=== PATIENT | male | born 1960 | race Caucasian/White ===

== ENCOUNTER → 2016-11-21 | Day surgery (SDC) | payer MEDICAID ==
[~2016-11-21] VITALS: Ht 182.9 cm; Wt 102.2 kg
[~2016-11-21] MED LIST: ASPI325T PO; ATOR20TA15 PO; BUPIVACAINE HCL PF 0.5% 30 ML VIAL NERV BLOCK ONE; BUPIVACAINE HCL PF 0.5% 30 ML VIAL ONE; DEXT 5%-NACL 0.45% 1000 ML INJ 1,000 ML IV SCH; FAMOTIDINE 20 MG/2 ML VIAL ONE; IBUP800T23 PO; LACTATED RINGER'S 1000 ML INJ 1,000 ML ONE; LISI10TA PO; METO25TA6 PO; MIDAZOLAM HCL 2 MG/2 ML VIAL ONE; MIDAZOLAM HCL 5 MG/ML VIAL (1 ML) ONE; MORPHINE SULFATE 4 MG/ML INJ ONE; PHENYLEPH/NS 1000 MCG/10 ML SYR IV ONE; PROPOFOL 200 MG/20 ML AMP IV ONE; SODIUM CHLORIDE 0.9% FLUSH 5 ML FLUSH IVF PRN; SODIUM CHLORIDE 0.9% FLUSH 5 ML FLUSH IVF SCH; TAMS0.4C4 PO; ceFAZolin 2 GM PREMIX 50 ML ONE; ePHEDrine/NS 25 MG/5 ML SYR IV ONE
[2016-11-21 09:35] VITALS: BP 128/79; PULSE 59; RESP 16; TEMP 97.7; O2SAT 92
[2016-11-21 09:40] VITALS: PULSE 59
[2016-11-21 09:58] LABS: HEMATOCRIT 40.8 % (39.0-51.0); MEAN CELL VOLUME 89.6 FL (80.0-100.0); MEAN CORPUSCULAR HEMOGLOBIN 29.7 PG (27.0-34.0); MEAN CORPUSCULAR HGB CONC 33.1 % (32.0-36.0); PLATELET COUNT 173 TH/MM3 (150-450); RED BLOOD COUNT 4.55 MIL/MM3 (4.50-5.90); RED CELL DISTRIBUTION WIDTH 12.8 % (11.6-17.2); REVIEW FLAG FINAL; WHITE BLOOD COUNT 7.3 TH/MM3 (4.0-11.0)
--- NOTE | 2016-11-21 10:22 | HP.UPD ---
H&P Update Date: Nov 21, 2016 Note The Pre-Admit History and Physical Examination regarding the above named patient was reviewed (including, but not limited to, vital signs, medications, allergies, co-morbid conditions), and upon re-examination it is noted that: Indicated with "X" x - the patient's condition has not significantly changed since the last examination. [] - the patient's condition has changed since the last examination. Changes: Deya Cabral MD Nov 21, 2016 10:22
[2016-11-21 10:32] VITALS: PULSE 67
[2016-11-21 12:31] VITALS: PULSE 83
--- NOTE | 2016-11-21 12:36 | HHI.PR ---
Immediate Post Op Note Procedure Date: Nov 21, 2016 Pre Op Diagnosis: (1) Osteoarthritis of hand, primary localized Post Op Diagnosis: (1) Osteoarthritis of hand, primary localized Surgeon: Deya Cabral Requirements Manager(s): None Procedure: Interposition arthroplasty of the right thumb CMC joint with tendon transfer. Anesthesia: General Drains: None Tourniquet time (min at mmHg) 75 minutes at 220 mm Hg Patient to: PACU Patient Condition: Good Date/Time of Procedure: SEE SURGICAL CARE RECORD Deya Cabral MD Nov 21, 2016 12:36
[2016-11-21 13:25] VITALS: BP 116/75; PULSE 80; RESP 16; TEMP 97.6; O2SAT 95
--- NOTE | 2016-11-22 13:08 | EKG ---
Date Performed: 11/21/2016 Time Performed: 09:56:42 PTAGE: 56 years EKG: Sinus rhythm . Normal ECG PREVIOUS TRACING : 11/16/2011 08.53 No significant change from previous tracing noted. DOCTOR: Balaji Anderson Interpretating Date/Time 11/22/2016 13:06:29
--- NOTE | 2016-11-22 18:52 | MP ---
cc: KAREN MULTANI M.D. 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 OPERATION: Interposition arthroplasty of the right thumb CMC joint with tendon transfer. ANESTHESIA: General. SURGEON: Dr. Multani. INDICATIONS: The patient is a 56 year-old male with severe degenerative joint disease of the fight CMC joint. FINDINGS There was complete loss of cartilage at the CMC joint. At the completion of the procedure, the carpal trapezium had been removed and replaced with a portion of the flexor carpi radialis. TOURNIQUET TIME: Tourniquet time was 75 minutes. PROCEDURE The patient was seen preoperatively where the site and side were identified and marked. The patient was then taken to the operating placed in supine position. His identity was checked against the arm band and the consent form, site and side confirmed, time-out called prior to beginning the procedure. The right upper extremity was prepped with Hibiclens and draped in usual sterile fashion. The hair was clipped and the areas to be operated prior to surgery. The areas to be incised were outlined with a marking pen and a transverse incision at the dorsal radial base of the thumb, CMC joint. In addition a transverse incision was designed at the most distal volar portion of flexor carpi radialis in the wrist and 10 cm proximal to the this. The arm was exsanguinated and tourniquet inflated to 220 mmHg. A 15 blade was used make the incision over the thumb at the CMC joint down through the skin, down to the subcutaneous tissue. Under loupe magnification using a spread technique superficial vessels and nerves identified and retracted exposing the capsule. The tendons were also retracted. Incision was made into the capsule and osteotomes were used to separate the ligamentous attachments from the carpal trapezium. It was then removed in piecemeal using rongeurs. The volar base of the thumb metacarpal was then removed. Some of the periosteum was stripped off the dorsal aspect of the thumb metacarpal and a 4-mm hole was drilled obliquely from the dorsal aspect of the metacarpal into the joint. The area was then copiously irrigated with saline. A new 15 blade was used to make the incision in the distal forearm over the flexor carpi radialis down through the skin, down through the subcutaneous tissue. Separate incision was made 10 cm proximal to this. The incision proximally was made through the skin and down to the subcutaneous tissue, and then a spread technique was used to separate the superficial nerves and vessels exposing the tendon. The ulnar 50% was divided and a tendon passer was used to pass the tendon distally. It was then passed into the wound using a right-angle clamp and the fibers were all the way to the insertion at the index metacarpal base. It was then passed through the thumb metacarpal hole which had been drilled using a Garza passer. The thumb was then pulled distally and abducted against the index metacarpal and an apposition was sewn into place. The remainder of the tendon was then wrapped around the part coming from the index metacarpal and that was then secured with a 3-0 Ethibond suture material creating the anchovy cushion. The wound was then copiously irrigated with saline and the wounds were closed with 4-0 Vicryl to the deep layers except for the distal flexor carpi radialis incision, and then all the wounds were closed with Dermabond. Once the glue had dried in layers, Steri-Strips were applied. The tourniquet was then released after 75 minutes of tourniquet time. Pressure was applied. After several minutes, there was no evidence of any oozing. Dressing was applied using fluffy gauze, cast padding, hand wrap and a thumb spica splint. The patient was then taken from the operating room to the Recovery Room in satisfactory condition having tolerated the procedure well. Postoperative instructions include keeping the arm elevated, keeping it clean and dry and returning in several days for follow up. The patient was given a prescription for ibuprofen 800 milligrams every 8 hours as needed for pain, 60 were prescribed. MD MEE Martin/RENAE /12:35 PM /6:25 PM
== END | disposition home or self-care (01) ==
LOC: PHSDC 08:45
PROVIDERS: ATTEND Specialist
DX: M19.041 Primary osteoarthritis, right hand (principal); M19.032 Primary osteoarthritis, left wrist; I10 Essential (primary) hypertension; Z79.82 Long term (current) use of aspirin
CPT/HCPCS: 01830; 25310; 25447; 36415; 85027; 93005; J0690; J2250; J2270; J2370; J3010; J7120

== ENCOUNTER → 2017-02-07 | Day surgery (SDC) | payer MEDICAID ==
[~2017-02-07] VITALS: Ht 182.9 cm; Wt 102.0 kg
[~2017-02-07] MED LIST changes: +BACITRACIN TOP OINT 15 GM TUBE ONE; -BUPIVACAINE HCL PF 0.5% 30 ML VIAL NERV BLOCK ONE; +CHLORHEXIDINE GLUCONATE 2 % 1 PACK (2 CLOTHS) TOPICAL PRN; +INSULIN HUMAN REGULAR 1,000 UNITS/10 ML VIAL SQ PRN; +LACTATED RINGER'S 1000 ML INJ 1,000 ML IV ONE; -LACTATED RINGER'S 1000 ML INJ 1,000 ML ONE; +LACTATED RINGER'S 1000 ML IV PRN; +LIDOCAINE 1%/EPINEPHrine 1:100,000 SOLN 30 ML VIAL ONE; +MEDR4PAK PO; +METOPROLOL TARTRATE 25 MG TAB PO PRN; -MIDAZOLAM HCL 2 MG/2 ML VIAL ONE; -MORPHINE SULFATE 4 MG/ML INJ ONE; +ONDANSETRON HCL 4 MG/2 ML VIAL IV PUSH ONE; +OXYMETAZOLINE HCL 0.05% 15 ML NASAL SPRAY ONE; -PHENYLEPH/NS 1000 MCG/10 ML SYR IV ONE; +POVIDONE IODINE 10% OINT 1 PACKET TOPICAL ONE; +POVIDONE IODINE 5% (ANTISEPSIS KIT) 4 APPLICATIONS EACH NARE PRN; +ROBA500T PO; +SODIUM CHLORID 0.9% 500 ML IV PRN; +TAMS5CAP PO; +ceFAZolin 2 GM PREMIX 50 ML IV SCH; -ceFAZolin 2 GM PREMIX 50 ML ONE; -ePHEDrine/NS 25 MG/5 ML SYR IV ONE
[2017-02-07 07:16] LABS: MEAN CELL VOLUME 87.7 FL (80.0-100.0); MEAN CORPUSCULAR HEMOGLOBIN 30.2 PG (27.0-34.0); MEAN CORPUSCULAR HGB CONC 34.4 % (32.0-36.0); PLATELET COUNT 218 TH/MM3 (150-450); RED BLOOD COUNT 4.45 MIL/MM3 (4.50-5.90); RED CELL DISTRIBUTION WIDTH 12.6 % (11.6-17.2); REVIEW FLAG FINAL; WHITE BLOOD COUNT 8.2 TH/MM3 (4.0-11.0)
[2017-02-07 07:18] VITALS: BP 146/93; PULSE 74; RESP 18; TEMP 97.9; O2SAT 95
[2017-02-07 07:53] VITALS: PULSE 68
--- NOTE | 2017-02-07 08:37 | HP.UPD ---
H&P Update Date: Feb 07, 2017 Note The Pre-Admit History and Physical Examination regarding the above named patient was reviewed (including, but not limited to, vital signs, medications, allergies, co-morbid conditions), and upon re-examination it is noted that: Indicated with "X" x - the patient's condition has not significantly changed since the last examination. [] - the patient's condition has changed since the last examination. Changes: Deya Cabral MD Feb 07, 2017 08:37
[2017-02-07 08:54] VITALS: PULSE 83
[2017-02-07 11:01] VITALS: PULSE 75
[2017-02-07 11:30] VITALS: PULSE 74; TEMP 97.7
--- NOTE | 2017-02-07 11:31 | HHI.PR ---
Immediate Post Op Note Procedure Date: Feb 07, 2017 Pre Op Diagnosis: (1) Primary osteoarthritis of left wrist Post Op Diagnosis: (1) Primary osteoarthritis of left wrist Surgeon: Deya Cabral Environmental Health And Safety Manager(s): None. Procedure: Interposition arthroplasty of the left thumb CMC joint with tendon transfer Anesthesia: General Drains: None Tourniquet time (min at mmHg) 78 minutes at 220 mmHg Patient to: PACU Patient Condition: Good Date/Time of Procedure: SEE SURGICAL CARE RECORD Deya Cabral MD Feb 07, 2017 11:31
[2017-02-07 12:20] VITALS: BP 120/71; PULSE 71; RESP 14; O2SAT 97
--- NOTE | 2017-02-07 22:34 | MP ---
cc: KAREN MULTANI M.D. DATE OF SURGERY: 02/07/2017 PREOPERATIVE DIAGNOSIS: Degenerative joint disease of the left thumb CMC joint. POSTOPERATIVE DIAGNOSIS: Degenerative joint disease of the left thumb CMC joint. OPERATION: Interposition arthroplasty of the left thumb CMC joint. Tendon transfer to the left thumb CMC joint. ANESTHESIA: General. SURGEON Karen Multani MD INDICATIONS A 56 year-old male with severe degenerative joint disease of the left thumb CMC joint. FINDINGS There was a significant amount of cartilage loss. At the completion of the procedure, the carpal trapezium had been removed and placed with tendon transfer using a portion of the flexor carpi radialis. TOURNIQUET TIME: 78 minutes at 220 mmHg. PROCEDURE The patient was seen preoperatively. The site and side were identified and marked. The patient was then taken to the operating room, placed in supine position. His identity was checked against the arm and the consent form, site and side confirmed, time-out called prior to beginning the procedure. The left upper extremity was prepped with Hibiclens and draped in the usual sterile fashion. The area be incised was outlined with a marking pen. The transverse incision, the dorsal radial aspect of the left thumb CMC joint. The area had been clipped prior to prepping and draping. Also an incision was designed in the most distal volar portion of the flexor carpi radialis in the wrist and 10 cm proximal to this. The arm was exsanguinated and the tourniquet inflated to 220 mmHg. A #15 blade was used make the incision over the CMC joint down through skin, down to the subcutaneous tissue. Under loupe magnification using sharp and blunt dissection the capsule was identified and opened exposing the trapezium which was then removed in piecemeal, after separate ligamentous attachments with a sharp osteotome. The flexor carpi radialis was visualized in the wound. The volar base of the metacarpal was removed and then a 4-mm hole was drilled obliquely from the dorsal aspect of the metacarpal into the joint where the trapezium had been removed with sequentially larger drill bits. The area was then copiously irrigated with saline. A 15 blade was then used make an incision over the most distal volar portion of the flexor carpi radialis in the wrist and 10 cm proximal to this. Proximally the ulnar 50% of the flexor tendon was divided and then stripped distally using a tendon passer. It was then passed distally into the wound and the fibers were all the way to the insertion at the base of the index metacarpal using a small right angle. A Garza passer was then used to pass the tendon through the hole that had been drilled in the metacarpal. The thumb was then pulled distally and adducted against the index metacarpal and then sewn upon itself using 3-0 Ethilon suture material. The remainder of the tendon was wrapped upon the portion coming from the base of the index metacarpal and then secured with 3-0 Tycron. The capsule was then closed with a 3-0 Tycron and the wounds were closed with 4-0 Vicryl and Dermabond. Once the glue had dried in several layers Steri-Strips were applied. The tourniquet was released after 78 minutes of tourniquet time. Pressure was applied. After several minutes there was no evidence of any oozing and a dressing was applied using fluffy gauze, hand wrap, and a thumb spica splint. The patient was then taken from the operating room to the recovery room in satisfactory condition having tolerated the procedure well. Postoperative instructions include keeping arm elevated, keeping it clean and dry and returning next week for follow up. The patient has a prescription for 800 mg of ibuprofen at home. In addition he was given a supraclavicular block prior to surgery for postoperative pain control. MD MEE Martin/RENAE /11:39 AM /10:28 PM
== END | disposition home or self-care (01) ==
LOC: PHSDC 06:30
PROVIDERS: ATTEND Specialist
DX: M18.12 Unilateral primary osteoarthritis of first carpometacarpal joint, left hand (principal); M19.032 Primary osteoarthritis, left wrist
CPT/HCPCS: 01810; 01830; 25310; 25447; 36415; 85027; J0690; J2250; J2405; J7120; L3808

== ENCOUNTER 2017-02-15 03:28 | Emergency (ER) | payer MEDICAID ==
[~2017-02-15 03:28] MED LIST changes: -ATOR20TA15 PO; -BACITRACIN TOP OINT 15 GM TUBE ONE; -BUPIVACAINE HCL PF 0.5% 30 ML VIAL ONE; -CHLORHEXIDINE GLUCONATE 2 % 1 PACK (2 CLOTHS) TOPICAL PRN; -DEXT 5%-NACL 0.45% 1000 ML INJ 1,000 ML IV SCH; -FAMOTIDINE 20 MG/2 ML VIAL ONE; -INSULIN HUMAN REGULAR 1,000 UNITS/10 ML VIAL SQ PRN; -LACTATED RINGER'S 1000 ML INJ 1,000 ML IV ONE; -LACTATED RINGER'S 1000 ML IV PRN; -LIDOCAINE 1%/EPINEPHrine 1:100,000 SOLN 30 ML VIAL ONE; -MEDR4PAK PO; -METOPROLOL TARTRATE 25 MG TAB PO PRN; -MIDAZOLAM HCL 5 MG/ML VIAL (1 ML) ONE; -ONDANSETRON HCL 4 MG/2 ML VIAL IV PUSH ONE; -OXYMETAZOLINE HCL 0.05% 15 ML NASAL SPRAY ONE; -POVIDONE IODINE 10% OINT 1 PACKET TOPICAL ONE; -POVIDONE IODINE 5% (ANTISEPSIS KIT) 4 APPLICATIONS EACH NARE PRN; -PROPOFOL 200 MG/20 ML AMP IV ONE; -ROBA500T PO; -SODIUM CHLORID 0.9% 500 ML IV PRN; -SODIUM CHLORIDE 0.9% FLUSH 5 ML FLUSH IVF PRN; -SODIUM CHLORIDE 0.9% FLUSH 5 ML FLUSH IVF SCH; -TAMS5CAP PO; -ceFAZolin 2 GM PREMIX 50 ML IV SCH
[2017-02-15 03:31] VITALS: BP 139/93; PULSE 72; RESP 18; TEMP 97.5; O2SAT 97
[2017-02-15] MEDS ORDERED: TAMS5CAP PO (03:55)
--- NOTE | 2017-02-15 04:20 | PD ---
HPI Chief Complaint: Injury Time Seen by Provider: 04:16 Travel History International Travel<30 days: No Contact w/Intl Traveler<30days: No Traveled to known affect area: No History of Present Illness HPI Patient comes in for evaluation of upper thoracic back pain radiates into his left upper extremity ongoing for 5 or 6 days. This pain is constant. Denies anything making it worse. Patient has some improvement with heat and ice. Patient states he had surgery on his left hand by Dr. Cabral about 8 days ago and has appointment with him later this morning for follow-up. Patient states he's been taking ibuprofen as prescribed by Dr. Cabral with no improvement of symptoms of his radiculopathy. Patient states she had similar issues with radiculopathy in his right upper extremity when he had to have surgery on his right hand while wearing a sling that caused him some decreased range of motion of his right upper extremity and he is concerned that this may happen to his left upper extremity. PFSH Past Medical History Hx Anticoagulant Therapy: Yes (ASPIRIN) Arthritis: Yes Anxiety: Yes Heart Rhythm Problems: Yes Cancer: No Cardiovascular Problems: Yes ([place]) High Cholesterol: Yes Chest Pain: Yes Congestive Heart Failure: Yes Diabetes: No Diminished Hearing: No Endocrine: No Gastrointestinal Disorders: No Genitourinary: No Headaches: Yes Hepatitis: Yes (1969'S) Hiatal Hernia: No Hypertension: Yes Immune Disorder: No Implanted Vascular Access Dvce: No Musculoskeletal: Yes (SANDRA PAVON'S DISEASE) Neurologic: Yes (NERVE PAIN BACK) Psychiatric: Yes (CLAUSTRAPHOBIA) Reproductive: Yes (PROSTATE) Respiratory: No Immunizations Current: Yes Thyroid Disease: No Past Surgical History AICD: No Body Medical Devices: PLATES IN NECK Joint Replacement: No Neurologic Surgery: Yes (LUMBAR LAMINECTOMY) Pacemaker: No Other Surgery: Yes (back and neck sx.) Social History Alcohol Use: No Tobacco Use: No Substance Use: No Allergies-Medications (Allergen,Severity, Reaction): Uncoded Allergies: ARTIFICIAL EGGS (Allergy, Severe, Itching, 11/21/16) Reported Meds & Prescriptions Reported Meds & Active Scripts Active Robaxin (Methocarbamol) 500 Mg Tab 500 Mg PO Q8HR PRN Do not drive or operate heavy machinery while on medication as it can make you fall asleep. Lisinopril-Hctz 10-12.5 Mg Tab 1 Tab PO DAILY Metoprolol Succinate ER 24 HR (Metoprolol Succinate) 25 Mg Tab 25 Mg PO DAILY Tamsulosin (Tamsulosin HCl) 0.4 Mg Cap 0.4 Mg PO HS Ibuprofen 800 Mg Tab 800 Mg PO Q8H PRN Reported Flomax (Tamsulosin HCl) 0.4 Mg Cap 0.4 Mg PO HS Aspirin 325 Mg Tab 325 Mg PO DAILY Review of Systems Except as stated in HPI: all other systems reviewed are Neg Physical Exam Narrative GENERAL: Well-developed, overly nourished, in no acute distress, and non-ill appearing. SKIN: Focused skin assessment warm and dry. HEAD: Atraumatic. Normocephalic. EYES: Pupils equal and round. EOMI. No scleral icterus. No injection or drainage. ENT: No nasal bleeding or discharge. Mucous membranes pink and moist. NECK: Trachea midline. Supple. No nuclear rigidity. RESPIRATORY: No accessory muscle use. No respiratory distress. MUSCULOSKELETAL: No obvious deformities. No clubbing. No cyanosis. No edema. Decreased range of motion left hand secondary to splint in place. Patient is wearing a sling for his left upper extremity. Patient reports point tenderness left upper thoracic cavity paravertebral spinal muscles the patient reports is worse pain starts and radiates into his left upper extremity. Neurovascularly intact distally. NEUROLOGICAL: Awake and alert. No obvious cranial nerve deficits. Motor grossly within normal limits. Normal speech. PSYCHIATRIC: Appropriate mood and affect; insight and judgment normal. Data Data Last Documented VS Vital Signs Date Time Temp Pulse Resp B/P Pulse Ox O2 Delivery O2 Flow Rate FiO2 02/15/17 03:31 97.5 72 18 139/93 97 MDM Medical Decision Making Medical Screen Exam Complete: Yes Emergency Medical Condition: Yes Differential Diagnosis Fracture, strain, radiculopathy, other Narrative Course The patient presented complaining of left upper thoracic back pain with radiation of pain down the arm. There was no history of recent fall or trauma. There was no evidence to support atypical cardiac/angina as an etiology. There is also no evidence to suggest vascular pathology such as TAA or carotid dissection. No fevers or other evidence to suspect infectious processes, abscess , osteomyelitis etc. The patients neurological exam is normal with normal motor (as can be assessed with the splint in place) and sensory. There is no motor deficits reported or found, and no bowel or bladder incontinence or retention. I suspect the pain is mechanical in nature secondary to sling use. Clinical suspicion, plan of care and management was discussed with the patient. The patient was instructed to follow up with their health care provider. The patient was also instructed to return if the pain worsened, changed, or developed weakness or bowel or bladder trouble. The patient agreed with plan. Patient in no obvious distress upon re-evaluation. Patient was asked if they wanted to speak to my attending, which the patient did not wish to do at this time. Any questions/concerns in reference to patient diagnosis/condition discussed and clarified prior to patient's discharge. Reinforced sheer importance of close follow up with patient's primary physician or primary care clinic. Instructed patient to return to ED immediately, if symptoms return/ worsen. Pt showed understanding of above instructions. Further instructions and recommendations were detailed in discharge paperwork. Pt ambulated without difficulty out of ED at discharge. Diagnosis Primary Impression: Radiculopathy affecting upper extremity Patient Instructions: General Instructions Additional Instructions: Follow-up with your primary care physician this week for reevaluation. Follow up with Dr. Cabral today as scheduled.. Take all medication as prescribed. Return to the emergency department if symptoms get worse. Med/Other Pt SpecificInfo: Prescription(s) given Scripts Methocarbamol (Robaxin)500 Mg [id number] Mg PO Q8HR PRN (MUSCLE PAIN) #12 TAB Ref [address] operate heavy machinery while on medication as it can make you fall asleep. Prov:Nohemi Childs MD 02/15/17 Disposition: 01 DISCHARGE HOME Condition: Stable Grady Dillard Feb 15, 2017 04:20
[2017-02-15] MEDS ORDERED: ROBA500T PO (04:21)
[2017-02-15] MEDS ORDERED: MEDR4PAK PO (10:53)
[2017-02-21] MEDS ORDERED: TRAM50TA PO (13:23)
== END 2017-02-15 04:49 | disposition home or self-care (01) ==
LOC: NEPD 03:28
DX: M54.14 Radiculopathy, thoracic region (principal); F41.9 Anxiety disorder, unspecified; E78.00 Pure hypercholesterolemia, unspecified; I50.9 Heart failure, unspecified; I10 Essential (primary) hypertension; K75.9 Inflammatory liver disease, unspecified; M92.50 Unspecified juvenile osteochondrosis of tibia and fibula; M13.88 Other specified arthritis, other site
CPT/HCPCS: 99283

== ENCOUNTER 2017-02-17 10:00 | Emergency (ER) | payer MEDICAID ==
[~2017-02-17] VITALS: Ht 193 cm; Wt 100.0 kg
[~2017-02-17 10:00] MED LIST changes: +MEDR4PAK PO; +ROBA500T PO; +TAMS5CAP PO
[2017-02-17 10:06] VITALS: BP 137/82; PULSE 73; RESP 18; TEMP 98.2; O2SAT 96
[2017-02-17 10:57] VITALS: BP 138/92; PULSE 71; RESP 18; O2SAT 95
[2017-02-17] MEDS ORDERED: MORPHINE SULFATE 4 MG/ML INJ IV PUSH ONE (11:00)
[2017-02-17] MEDS ORDERED: SODIUM CHLORIDE 0.9% FLUSH 10 ML FLUSH IVF PRN (11:00)
[2017-02-17] MEDS ORDERED: oxyCODONE/ACETAMINOPHEN 5 MG/325 MG TAB PO ONE (11:00)
[2017-02-17 11:04] LABS: AUTOMATED NEUTROPHIL # 7.4 TH/MM3 (1.8-7.7); BASOPHIL # 0.1 TH/MM3 (0-0.2); BASOPHIL % 1.2 % (0.0-2.0); EOSINOPHIL # 0.1 TH/MM3 (0-0.4); EOSINOPHIL % 0.6 % (0.0-4.0); HEMO FLAGS DIFF FINAL; LYMPH % 25.5 % (9.0-44.0); LYMPHOCYTE # 2.7 TH/MM3 (1.0-4.8); MEAN CELL VOLUME 87.5 FL (80.0-100.0); MEAN CORPUSCULAR HEMOGLOBIN 29.7 PG (27.0-34.0); MONO % 4.6 % (0.0-8.0); NEUT % 68.1 % (16.0-70.0); PLATELET COUNT 232 TH/MM3 (150-450); RED BLOOD COUNT 4.35 MIL/MM3 (4.50-5.90); RED CELL DISTRIBUTION WIDTH 12.2 % (11.6-17.2); WHITE BLOOD COUNT 10.8 TH/MM3 (4.0-11.0)
[2017-02-17 11:13] LABS: CHLORIDE 103 MEQ/L (98-107); POTASSIUM 3.4 MEQ/L (3.5-5.1); SODIUM (NA) 138 MEQ/L (136-145)
[2017-02-17 11:16] LABS: ANION GAP 7 MEQ/L (5-15); BICARBONATE 27.6 MEQ/L (21.0-32.0); BLOOD UREA NITROGEN 16 MG/DL (7-18)
[2017-02-17 11:19] LABS: GLOMERULAR FILTRATION RATE 69 ML/MIN (>89)
[2017-02-17] MEDS ORDERED: PERC5TAB12 PO (11:27)
[2017-02-17] MEDS ORDERED: GABA300C5 PO (11:27)
--- NOTE | 2017-02-17 11:27 | PD ---
HPI Chief Complaint: Musculoskeletal Complaint Time Seen by Provider: 10:29 Travel History International Travel<30 days: No Contact w/Intl Traveler<30days: No Traveled to known affect area: No History of Present Illness HPI 56-year-old male with history of cervical and lumbar spine surgery here with complaint of left shoulder pain. Patient incidentally had a left thumb surgery by Dr. Cabral for osteoarthritis approximately one week ago. 2 days after surgery he began to have a burning, stinging, electric type pain from his left shoulder, left scapular region radiating down into the left arm. He was seen by Dr. Cabral who prescribed him NSAIDs, and give him a Medrol Dosepak. He is currently on day 3. Patient has not had any chest pain, but has had some shortness of breath which has been going on for several weeks duration. No peripheral edema. Patient does have a history of AZ, managed medically. His pain is made worse with any range of motion. He does have a sling at home and has used this but states that it hasn't helped much. PFSH Past Medical History Hx Anticoagulant Therapy: Yes (ASPIRIN) Arthritis: Yes Anxiety: Yes Heart Rhythm Problems: Yes Cancer: No High Cholesterol: Yes Chest Pain: Yes Congestive Heart Failure: Yes Diabetes: No Diminished Hearing: No Endocrine: No Gastrointestinal Disorders: No Genitourinary: No Headaches: Yes Hepatitis: Yes (1970'S) Hiatal Hernia: No Hypertension: Yes Immune Disorder: No Implanted Vascular Access Dvce: No Musculoskeletal: Yes (SANDRA PAVON'S DISEASE) Neurologic: Yes (NERVE PAIN BACK) Psychiatric: Yes (CLAUSTRAPHOBIA) Reproductive: Yes (PROSTATE) Respiratory: No Immunizations Current: Yes Thyroid Disease: No Past Surgical History AICD: No Body Medical Devices: PLATES IN NECK Joint Replacement: No Neurologic Surgery: Yes (LUMBAR LAMINECTOMY) Pacemaker: No Other Surgery: Yes (back and neck sx.) Social History Alcohol Use: No Tobacco Use: No Substance Use: No Allergies-Medications (Allergen,Severity, Reaction): Uncoded Allergies: ARTIFICIAL EGGS (Allergy, Severe, Itching, 11/21/16) Reported Meds & Prescriptions Reported Meds & Active Scripts Active Gabapentin 300 Mg Cap 300 Mg PO TID Percocet (Oxycodone-Acetaminophen) 5-325 mg Tab 1-2 Tab PO Q4H PRN Medrol Dosepak (Methylprednisolone) 4 Mg Dspk 4 Mg PO DIRECTED Per Pharmacist direction Robaxin (Methocarbamol) 500 Mg Tab 500 Mg PO Q8HR PRN Do not drive or operate heavy machinery while on medication as it can make you fall asleep. Lisinopril-Hctz 10-12.5 Mg Tab 1 Tab PO DAILY Metoprolol Succinate ER 24 HR (Metoprolol Succinate) 25 Mg Tab 25 Mg PO DAILY Ibuprofen 800 Mg Tab 800 Mg PO Q8H PRN Reported Flomax (Tamsulosin HCl) 0.4 Mg Cap 0.4 Mg PO HS Aspirin 325 Mg Tab 325 Mg PO DAILY Review of Systems Except as stated in HPI: all other systems reviewed are Neg Physical Exam Narrative GENERAL: Well-appearing male in no acute distress SKIN: Focused skin assessment warm/dry. HEAD: Normocephalic. EYES: No scleral icterus. No injection or drainage. ENT: Mucous membranes pink and moist. NECK: Supple without midline tenderness to palpation. Patient does have tenderness along the left trapezius without palpable spasm CARDIOVASCULAR: Regular rate and rhythm. No murmur appreciated. RESPIRATORY: No accessory muscle use. Clear to auscultation. Breath sounds equal bilaterally. GASTROINTESTINAL: Abdomen soft, non-tender, nondistended. Obese MUSCULOSKELETAL: Patient holding left shoulder splinted to the torso. He has a splint over the left wrist and thumb, thumb spica splint. He has focal tenderness to palpation at the head of the biceps, acromioclavicular joint, medial scapular/rhomboids, and pain with any range of motion of the shoulder particularly abduction greater than 90 and external rotation greater than 50. Distal sensation, capillary refill intact. Strength of the shoulder with flexion, abduction and internal/external rotation is limited left versus right, 4+. NEUROLOGICAL: Awake and alert. Normal speech. PSYCHIATRIC: Appropriate mood and affect; insight and judgment normal. Data Data Last Documented VS Vital Signs Date Time Temp Pulse Resp B/P Pulse Ox O2 Delivery O2 Flow Rate FiO2 02/17/17 10:57 71 18 138/92 95 Room Air 02/17/17 10:06 98.2 Orders Electrocardiogram (02/17/17 ) Basic Metabolic Panel (Bmp) (02/17/17 10:47) Complete Blood Count With Diff (02/17/17 10:47) Troponin I (02/17/17 10:47) Ecg Monitoring (02/17/17 10:47) Iv Access Insert/Monitor (02/17/17 10:47) Oximetry (02/17/17 10:47) Sodium Chloride 0.9% Flush (Ns Flush) (02/17/17 11:00) Morphine Inj (Morphine Inj) (02/17/17 11:00) Oxycodone-Acetamin 5-325 Mg (Percocet (02/17/17 11:00) Labs Laboratory Tests Test 02/17/17 11:00 White Blood Count 10.8 TH/MM3 Red Blood Count 4.35 MIL/MM3 Hemoglobin 12.9 GM/DL Hematocrit 38.0 % Mean Corpuscular Volume 87.5 FL Mean Corpuscular Hemoglobin 29.7 PG Mean Corpuscular Hemoglobin 34.0 % Concent Red Cell Distribution Width 12.2 % Platelet Count 232 TH/MM3 Mean Platelet Volume 7.9 FL Neutrophils (%) (Auto) 68.1 % Lymphocytes (%) (Auto) 25.5 % Monocytes (%) (Auto) 4.6 % Eosinophils (%) (Auto) 0.6 % Basophils (%) (Auto) 1.2 % Neutrophils # (Auto) 7.4 TH/MM3 Lymphocytes # (Auto) 2.7 TH/MM3 Monocytes # (Auto) 0.5 TH/MM3 Eosinophils # (Auto) 0.1 TH/MM3 Basophils # (Auto) 0.1 TH/MM3 CBC Comment DIFF FINAL Differential Comment Sodium Level 138 MEQ/L Potassium Level 3.4 MEQ/L Chloride Level 103 MEQ/L Carbon Dioxide Level 27.6 MEQ/L Anion Gap 7 MEQ/L Blood Urea Nitrogen 16 MG/DL Creatinine 1.10 MG/DL Estimat Glomerular Filtration 69 ML/MIN Rate Random Glucose 92 MG/DL Calcium Level 9.1 MG/DL Troponin I LESS THAN 0.02 NG/ML MDM Medical Decision Making Medical Screen Exam Complete: Yes Emergency Medical Condition: Yes Medical Record Reviewed: Yes Differential Diagnosis 56-year-old male with history of AZ here with left-sided shoulder pain, scapular pain that radiates down the left arm. Patient describes this as a radicular type pain, burning, electric in nature. I strong suspicion is for radiculopathy versus rotator cuff strain. Given his age and history of AZ there is concern for ACS on the differential although less likely given the approximately one week of pain without any worsening symptoms. Narrative Course Patient placed on monitor, IV established and blood obtained. Twelve-lead EKG shows sinus rhythm without notable ST or T-wave abnormalities and normal intervals. Patient was given morphine, Percocet. CBC, BMP, troponin were obtained and unremarkable. Patient was encouraged to use his Medrol Dosepak, he is currently on day 3. He was also given prescription for Percocet, gabapentin for home and encouraged to follow-up with sports medicine as an outpatient. Diagnosis Primary Impression: Radiculopathy affecting upper extremity Referrals: Adolfo Sabillon MD call for appointment Orthopedist call for appointment Additional Instructions: Percocet as needed for pain. Gabapentin as prescribed for pain. Follow-up with sports medicine physician as discussed. Med/Other Pt SpecificInfo: Prescription(s) given Scripts Gabapentin 300 Mg [id number] Mg PO TID #90 CAP Ref 0 Prov:Amber Samuel MD 02/17/17 Oxycodone-Acetaminophen (Percocet)5-325 mg Tab1-2 Tab PO Q4H PRN (PAIN) #20 TAB Ref 0 Prov:Amber Samuel MD 02/17/17 Disposition: 01 DISCHARGE HOME Condition: Stable Amber Samuel MD Feb 17, 2017 11:27
[2017-02-17 11:40] VITALS: BP 128/82; PULSE 65; RESP 14; O2SAT 95
--- NOTE | 2017-02-17 14:46 | EKG ---
Date Performed: 02/17/2017 Time Performed: 10:51:40 PTAGE: 56 years EKG: Sinus rhythm NORMAL ECG PREVIOUS TRACING : 11/21/2016 09.56 Compared to prior tracing no significant change DOCTOR: Adrian Lion Interpretating Date/Time 02/17/2017 14:45:13
[2017-02-21] MEDS ORDERED: TRAM50TA PO (13:23)
== END 2017-02-17 11:50 | disposition home or self-care (01) ==
LOC: PHEFT 10:00
DX: M54.10 Radiculopathy, site unspecified (principal); R06.02 Shortness of breath
CPT/HCPCS: 80048; 84484; 85025; 93005; 96374; 99284; J2270

== ENCOUNTER 2017-02-26 15:21 | Emergency (ER) | payer MEDICAID ==
[~2017-02-26] VITALS: Ht 182.9 cm; Wt 94.4 kg
[~2017-02-26 15:21] MED LIST changes: +GABA300C5 PO; -MEDR4PAK PO; +PERC5TAB12 PO; -TAMS0.4C4 PO; +TRAM50TA PO
[2017-02-26 15:25] VITALS: BP 132/80; PULSE 73; RESP 18; O2SAT 98
--- NOTE | 2017-02-26 15:42 | PD ---
HPI Chief Complaint: Pain: Acute or Chronic Time Seen by Provider: 15:34 Travel History International Travel<30 days: No Contact w/Intl Traveler<30days: No Traveled to known affect area: No History of Present Illness HPI PCP IS DR JEFFERS?, PATIENT C/O CHRONIC BACK PAIN/ARM PAIN (S/P SURGERY) WHICH HAS BEEN GOING ON AND WORKED UP BY PCP OVER PAST 3-4 WEEKS....HOWEVER REASON PATIENT CAME INTO ER IS LIGHTHEADEDNESS AND LIKE HE'S GOING TO FAINT, NO ALBERTO/CP/ ABDPAIN/N/V/D. RESTING SUPINE APPEARS TO BE A RELIEVING FACTOR, WHILE EXERTION SEEMS TO CAUSE WORSENING OF HIS DIZZINESS. PFSH Past Medical History Hx Anticoagulant Therapy: Yes (ASPIRIN) Arthritis: Yes Anxiety: Yes Heart Rhythm Problems: Yes Cancer: No High Cholesterol: Yes Chest Pain: Yes Congestive Heart Failure: Yes Diabetes: No Diminished Hearing: No Endocrine: No Gastrointestinal Disorders: No Genitourinary: No Headaches: Yes Hepatitis: Yes (1969'S) Hiatal Hernia: No Hypertension: Yes Immune Disorder: No Implanted Vascular Access Dvce: No Musculoskeletal: Yes (SANDRA PAVON'S DISEASE) Neurologic: Yes (NERVE PAIN BACK) Psychiatric: Yes (CLAUSTRAPHOBIA) Reproductive: Yes (PROSTATE) Respiratory: No Immunizations Current: Yes Thyroid Disease: No ?: Not Past Surgical History AICD: No Body Medical Devices: PLATES IN NECK Joint Replacement: No Neurologic Surgery: Yes (LUMBAR LAMINECTOMY) Pacemaker: No Other Surgery: Yes (back and neck sx.) Social History Alcohol Use: No Tobacco Use: No Substance Use: No Allergies-Medications (Allergen,Severity, Reaction): Uncoded Allergies: ARTIFICIAL EGGS (Allergy, Severe, Itching, 11/21/16) Reported Meds & Prescriptions Reported Meds & Active Scripts Active Baclofen 20 Mg Tab 20 Mg PO TID Tramadol (Tramadol HCl) 50 Mg Tab 50 Mg PO Q8H PRN Gabapentin 300 Mg Cap 300 Mg PO TID Lisinopril-Hctz 10-12.5 Mg Tab 1 Tab PO DAILY Metoprolol Succinate ER 24 HR (Metoprolol Succinate) 25 Mg Tab 25 Mg PO DAILY Ibuprofen 800 Mg Tab 800 Mg PO Q8H PRN Reported Flomax (Tamsulosin HCl) 0.4 Mg Cap 0.4 Mg PO HS Review of Systems Except as stated in HPI: all other systems reviewed are Neg HENT: Positive: Lightheadedness Physical Exam Narrative GENERAL: SKIN: Warm and dry. HEAD: Atraumatic. Normocephalic. EYES: Pupils equal and round. No scleral icterus. No injection or drainage. ENT: No nasal bleeding or discharge. Mucous membranes pink and moist. NECK: Trachea midline. No JVD. CARDIOVASCULAR: Regular rate and rhythm. RESPIRATORY: No accessory muscle use. Clear to auscultation. Breath sounds equal bilaterally. GASTROINTESTINAL: Abdomen soft, non-tender, nondistended. MUSCULOSKELETAL: Extremities without clubbing, cyanosis, or edema. No obvious deformities. NEUROLOGICAL: Awake and alert. No obvious cranial nerve deficits. Motor grossly within normal limits. Five out of 5 muscle strength in the arms and legs. Normal speech. PSYCHIATRIC: Appropriate mood and affect; insight and judgment normal. Data Data Last Documented VS Orders Electrocardiogram (02/26/17 15:34) Complete Blood Count With Diff (02/26/17 15:34) Comprehensive Metabolic Panel (02/26/17 15:34) Ckmb (Isoenzyme) Profile (02/26/17 15:34) Troponin I (02/26/17 15:34) B-Type Natriuretic Peptide (02/26/17 15:34) Prothrombin Time / Inr (Pt) (02/26/17 15:34) Act Partial Throm Time (Ptt) (02/26/17 15:34) Lipase (02/26/17 15:34) D-Dimer (02/26/17 15:34) Thyroid Stimulating Hormone (02/26/17 15:34) Chest, Single Ap (02/26/17 15:34) Ct Brain W/O Iv Contrast(Rout) (02/26/17 15:34) Iv Access Insert/Monitor (02/26/17 15:34) Ecg Monitoring (02/26/17 15:34) Oximetry (02/26/17 15:34) Orthostatic Vital Signs (02/26/17 15:34) Meclizine (Antivert) (02/26/17 16:15) CKMB (02/26/17 15:35) CKMB% (02/26/17 15:35) Lorazepam Inj (Ativan Inj) (02/26/17 17:00) Sodium Chlor 0.9% 1000 Ml Inj (Ns 1000 M (02/26/17 17:00) Labs MDM Medical Decision Making Medical Screen Exam Complete: Yes Emergency Medical Condition: Yes Medical Record Reviewed: Yes Interpretation(s) NSR 68, NL INTERVALS, INCOMPLETE RBBB PATTERN BUT NO STEMI PATTERN NOTED Differential Diagnosis ANEMIA V DEHYDRATION V NONSTEMI V ATYPICAL STEMI V ICH V BRAIN MASS Narrative Course no e/o anemia, dehydration, stemi or nonstemi a tthis point, also ct head neg for ich or brain mass. patient is essentially found with vertigo and spasm of back without crepitus Diagnosis Primary Impression: VERTIGO Additional Impression: Muscle spasm of back Scripts Baclofen 20 Mg Tab20 Mg PO TID #30 TAB Ref 0 Prov:Dionicio Kent MD 02/26/17 Disposition: 01 DISCHARGE HOME Condition: Stable Dionicio Kent MD Feb 26, 2017 15:42 Hematocrit 40.1 % Mean Corpuscular Volume 87.2 FL Mean Corpuscular Hemoglobin 29.7 PG Mean Corpuscular Hemoglobin 34.1 % Concent Red Cell Distribution Width 12.2 % Platelet Count 235 TH/MM3 Mean Platelet Volume 8.7 FL Neutrophils (%) (Auto) 54.7 % Lymphocytes (%) (Auto) 35.2 % Monocytes (%) (Auto) 4.7 % Eosinophils (%) (Auto) 1.8 % Basophils (%) (Auto) 3.6 % Neutrophils # (Auto) 6.3 TH/MM3 Lymphocytes # (Auto) 4.0 TH/MM3 Monocytes # (Auto) 0.5 TH/MM3 Eosinophils # (Auto) 0.2 TH/MM3 Basophils # (Auto) 0.4 TH/MM3 CBC Comment DIFF FINAL Differential Comment Prothrombin Time 11.3 SEC Prothromb Time International 1.0 RATIO Ratio Activated Partial 24.9 SEC Thromboplast Time D-Dimer Quantitative (PE/DVT) 0.40 MG/L FEU Sodium Level 137 MEQ/L Potassium Level 3.9 MEQ/L Chloride Level 100 MEQ/L Carbon Dioxide Level 28.7 MEQ/L Anion Gap 8 MEQ/L Blood Urea Nitrogen 16 MG/DL Creatinine 1.00 MG/DL Estimat Glomerular Filtration 77 ML/MIN Rate Random Glucose 104 MG/DL Calcium Level 9.1 MG/DL Total Bilirubin 0.6 MG/DL Aspartate Amino Transf 21 U/L (AST/SGOT) Alanine Aminotransferase 24 U/L (ALT/SGPT) Alkaline Phosphatase 73 U/L Total Creatine Kinase 186 U/L Creatine Kinase MB 1.7 NG/ML Troponin I LESS THAN 0.02 NG/ML B-Type Natriuretic Peptide LESS THAN 2 PG/ML Total Protein 7.8 GM/DL Albumin 4.1 GM/DL Lipase 252 U/L Thyroid Stimulating Hormone 1.980 uIU/ML 3rd Gen [facility] Medical Decision Making Medical Screen Exam Complete: Yes Emergency Medical Condition: Yes Medical Record Reviewed: Yes Interpretation(s) NSR 68, NL INTERVALS, INCOMPLETE RBBB PATTERN BUT NO STEMI PATTERN NOTED Differential Diagnosis ANEMIA V DEHYDRATION V NONSTEMI V ATYPICAL STEMI V ICH V BRAIN MASS Diagnosis Primary Impression: VERTIGO Additional Impression: Muscle spasm of back Scripts Baclofen 20 Mg Tab20 Mg PO TID #30 TAB Ref 0 Prov:Dionicio Kent MD 02/26/17 Disposition: 01 DISCHARGE HOME Condition: Stable Dionicio Kent MD Feb 26, 2017 15:42
[2017-02-26 15:49] LABS: AUTOMATED NEUTROPHIL # 6.3 TH/MM3 (1.8-7.7); BASOPHIL # 0.4 TH/MM3 (0-0.2); BASOPHIL % 3.6 % (0.0-2.0); EOSINOPHIL # 0.2 TH/MM3 (0-0.4); EOSINOPHIL % 1.8 % (0.0-4.0); HEMATOCRIT 40.1 % (39.0-51.0); HEMO FLAGS DIFF FINAL; LYMPH % 35.2 % (9.0-44.0); MEAN CELL VOLUME 87.2 FL (80.0-100.0); MEAN CORPUSCULAR HEMOGLOBIN 29.7 PG (27.0-34.0); MEAN CORPUSCULAR HGB CONC 34.1 % (32.0-36.0); MONO % 4.7 % (0.0-8.0); NEUT % 54.7 % (16.0-70.0); PLATELET COUNT 235 TH/MM3 (150-450); RED CELL DISTRIBUTION WIDTH 12.2 % (11.6-17.2); WHITE BLOOD COUNT 11.4 TH/MM3 (4.0-11.0)
[2017-02-26 15:57] LABS: CHLORIDE 100 MEQ/L (98-107); POTASSIUM 3.9 MEQ/L (3.5-5.1); SODIUM (NA) 137 MEQ/L (136-145)
--- NOTE | 2017-02-26 15:59 | RADRPT ---
EXAM DATE/TIME: 02/26/2017 15:38 [facility] COMPARISON: No previous studies available for comparison. INDICATIONS : Dizziness. RADIATION DOSE: 58.67 CTDIvol (mGy) MEDICAL HISTORY : Myocardial infarction. Hypertension. SURGICAL HISTORY : Fusion, cervical. ENCOUNTER: Initial ACUITY: 1 day PAIN SCALE: 0/10 LOCATION: cranial TECHNIQUE: Multiple contiguous axial images were obtained of the head. Using automated exposure control and adj ustment of the mA and/or kV according to patient size, radiation dose was kept as low as reasonably a chievable to obtain optimal diagnostic quality images. DICOM format image data is available electro nically for review and comparison. FINDINGS: CEREBRUM: The ventricles are normal for age. No evidence of midline shift, mass lesion, hemorrhage or acute in farction. No extra-axial fluid collections are seen. POSTERIOR FOSSA: The cerebellum and brainstem are intact. The 4th ventricle is midline. The cerebellopontine angle i s unremarkable. EXTRACRANIAL: The visualized portion of the orbits is intact. SKULL: The calvaria is intact. No evidence of skull fracture. CONCLUSION: No acute disease. Boris Chaidez MD on February 26, 2017 at 15:56 Board Certified Radiologist. This report was verified electronically.
[2017-02-26 16:01] LABS: ANION GAP 8 MEQ/L (5-15); BICARBONATE 28.7 MEQ/L (21.0-32.0); BLOOD UREA NITROGEN 16 MG/DL (7-18)
[2017-02-26 16:03] LABS: ALT (GPT) 24 U/L (12-78); AST (GOT) 21 U/L (15-37)
[2017-02-26 16:04] LABS: GLOMERULAR FILTRATION RATE 77 ML/MIN (>89)
[2017-02-26 16:05] LABS: TOTAL BILIRUBIN ADULT 0.6 MG/DL (0.2-1.0)
[2017-02-26 16:06] LABS: ALKALINE PHOSPHATASE 73 U/L (45-117); CREATINE KINASE 186 U/L (39-308)
[2017-02-26 16:11] LABS: APTT (PATIENT) 24.9 SEC (24.3-30.1); PROTHROMBIN TIME - PATIENT 11.3 SEC (9.8-11.6)
--- NOTE | 2017-02-26 16:12 | RADRPT ---
EXAM DATE/TIME: 02/26/2017 15:46 [facility] COMPARISON: No previous studies available for comparison. INDICATIONS : Dizzy, weak, syncope, blurred vision MEDICAL HISTORY : Myocardial infarction. Hypertension SURGICAL HISTORY : Fusion, cervical. ENCOUNTER: Initial ACUITY: 1 day PAIN SCORE: 0/10 LOCATION: Bilateral chest FINDINGS: A single view of the chest demonstrates the lungs to be symmetrically aerated without evidence of mas s, infiltrate or effusion. The cardiomediastinal contours are unremarkable. Osseous structures are intact. CONCLUSION: The lungs are clear. Matt Marsh MD on February 26, 2017 at 16:10 Board Certified Radiologist. This report was verified electronically.
[2017-02-26 16:13] VITALS: BP_SYST 113; BP_SYST 118; BP_SYST 120; BP_DIAS 72; BP_DIAS 76; BP_DIAS 79
[2017-02-26] MEDS ORDERED: MECLIZINE HCL 25 MG TAB PO ONE (16:15)
[2017-02-26 16:19] LABS: CKMB 1.7 NG/ML (0.5-3.6)
[2017-02-26] MEDS ORDERED: LORazepam 2 MG/ML VIAL IV PUSH ONE (17:00)
[2017-02-26] MEDS ORDERED: SODIUM CHLOR 0.9% 1000 ML INJ 1,000 ML IV ONE (17:00)
[2017-02-26] MEDS ORDERED: BACL20TA PO (17:15)
[2017-02-26 18:17] VITALS: BP 126/85
--- NOTE | 2017-02-27 14:12 | EKG ---
Date Performed: 02/26/2017 Time Performed: 15:44:17 PTAGE: 56 years EKG: Sinus rhythm NORMAL ECG Compared to prior tracing no significant change PREVIOUS TRACING : 02/17/2017 10.51 DOCTOR: Pascual Harkins Interpretating Date/Time 02/27/2017 14:10:29
== END 2017-02-26 18:19 | disposition home or self-care (01) ==
LOC: PHED 15:21
DX: R42 Dizziness and giddiness (principal); M62.830 Muscle spasm of back; I50.9 Heart failure, unspecified; I10 Essential (primary) hypertension
CPT/HCPCS: 70450; 71010; 80053; 82550; 82552; 83690; 83880; 84443; 84484; 85025; 85379; 85610; 85730; 93005; 96361; 96374; 99285; J2060; J7030